=== PATIENT | female | born 1950 | race Caucasian/White ===

== ENCOUNTER 2019-06-26 06:55 | Day surgery (SDC) ==
--- NOTE | 2019-06-20 15:07 | EKG Report ---
Test Performed on : 06/20/2019 3:02:55 PM Test Reason : PAT Blood Pressure : / mmHG Vent. Rate : 073 BPM Atrial Rate : 073 BPM P-R Int : 144 ms QRS Dur : 086 ms QT Int : 410 ms P-R-T Axes : 084 088 083 degrees QTc Int : 451 ms Normal sinus rhythm. with sinus arrhythmia. Biatrial enlargement Abnormal ECG When compared with ECG of 22-NOV-2013 12:04, Criteria for Anterior infarct are no longer present Confirmed by Cornell Parish MD ([id number]) on 06/21/2019 8:10:27 AM
[2019-06-20 15:24] LABS: HEMATOCRIT 40.5 % (37.0-47.0); HEMOGLOBIN 13.3 g/dL (12.0-16.0); MCH 31.4 PG (27-31); MCHC 32.8 g/dL (33-37); MCV 95.5 FL (81-99); MPV 9.7 FL (7.4-10.4); RBC 4.24 XMIL (4.2-5.4); RDW 14.2 % (11.5-14.5); WBC 7.24 X1000 (4.8-10.8)
[2019-06-20 15:55] LABS: AGAP 12; BUN 19 mg/dL (8-22); CALCIUM 8.8 mg/dL (8.8-10.2); CHLORIDE 108 mmol/L (98-107); COSMO 289; CREATININE 0.7 mg/dL (0.5-0.9); ESTIMATED GFR > 60; GLUCOSE 91 mg/dL (70-104); SODIUM 144 mmol/L (136-145); TCO2 24 mmol/L (25-35)
--- NOTE | 2019-06-26 07:57 | Diag Imaging Result Doc PS360 ---
LYMPHOSCINTIGRAPHY W/IMG - 06/26/2019 INDICATION: LEFT BREAST CARCINOMA COMPARISON: None FINDINGS: 530 uCi of radiotracer was injected into the left breast. After the appropriate delay, there was successful visualization of at least one sentinel lymph node in the axilla. IMPRESSION: Successful lymphoscintigraphy of the breast. Electronically signed by Mark Jaquez 06/26/2019 7:55 AM
[2019-06-26] MEDS ORDERED: LR 1,000 ML ONE ×2 (08:07→08:08)
[2019-06-26] MEDS ORDERED: KEFZOL 1 GM/D5W 1 GM/50 ML IVPB ONE (08:07)
[2019-06-26] MEDS ORDERED: FENTANYL ONE (08:08)
[2019-06-26] MEDS ORDERED: DIPRIVAN 1% ONE (08:08)
[2019-06-26] MEDS ORDERED: ROBINUL ONE (08:12)
[2019-06-26] MEDS ORDERED: QUELICIN (DOSE) ONE (08:12)
[2019-06-26] MEDS ORDERED: XYLOCAINE-MPF 2% ONE (08:12)
[2019-06-26] MEDS ORDERED: METHYLENE BLUE 0.5% ONE (08:27)
[2019-06-26] MEDS ORDERED: DECADRON ONE (09:12)
[2019-06-26] MEDS ORDERED: ZOFRAN ONE (09:12)
[2019-06-26] MEDS ORDERED: EPHEDRINE ONE (09:25)
[2019-06-26] MEDS: DILAUDID ONE ×2 (10:26→10:30)
[2019-06-26] MEDS ORDERED: ZOFRAN IV PRN (11:13)
[2019-06-26] MEDS ORDERED: DILAUDID IV PRN (11:13)
[2019-06-26 15:34] LABS: URINE SOURCE CLEAN CATCH
[2019-06-26 15:38] LABS: BILIRUBIN URINE NEGATIVE (NEGATIVE); BLOOD URINE NEGATIVE (NEGATIVE); COLOR STRAW; GLUCOSE URINE NEGATIVE (NEGATIVE); KETONE URINE NEGATIVE (NEGATIVE); LEUKOCYTES URINE NEGATIVE (NEGATIVE); NITRITE URINE NEGATIVE (NEGATIVE); PH URINE 7.5; PROTEIN URINE NEGATIVE (NEGATIVE); SP GRAVITY URINE 1.009; TURBIDITY URINE CLEAR (CLEAR); UR EPITHELIAL CELLS <10 /HPF (<10); URINE BACTERIA NEGATIVE /HPF; URINE RBC <10 /HPF (<10); URINE WBC <10 /HPF (<10); UROBILINOGEN URINE NORMAL (NORMAL)
[2019-06-26] MEDS: KEFZOL 1 GM/D5W 1 GM/50 ML IVPB IV SCH (16:53)
[2019-06-26] MEDS: LR 1,000 ML IV SCH (16:56)
--- NOTE | 2019-06-26 18:40 | OPERATIVE NOTE ---
PROCEDURE DATE: 06/26/2019 OPERATION: 1. Left sentinel lymph node injection with methylene blue. 2. Left sentinel lymph node biopsy x2. 3. Left total mastectomy. SURGEON: Moises Malloy MD. TREE FELLER: Neftali Langley RN. PREOPERATIVE DIAGNOSIS: Cancer of the left breast. POSTOPERATIVE DIAGNOSIS: Cancer of the left breast. DESCRIPTION OF PROCEDURE: Satisfactory general anesthesia was achieved and LMA was used. The left breast was isolated. We then injected 5 mL of methylene blue in 1 mL aliquots. We then massaged the breast for 5 minutes. The anterior chest wall, breast, and proximal arm were then prepped and draped in a sterile fashion. We made an elliptical jennifer around the nipple-areolar complex with extension into the axilla. We then made a transverse incision in the axilla and dissected into the left axilla. We then interrogated the axilla with the gamma probe and we identified a hot spot. We then dissected deep into the axilla and actually identified a blue node. There was an adjacent node as well and we removed these 2 nodes, clipping off the feeding lymphatics. We then these 2 nodes. The blue node had a high gamma probe count. The additional contiguous node did not. Both of these were sent for frozen section. As we awaited that report, we then went back and incised the skin in the area of the jennifer where the ellipse was marked. We then used breast hooks to raise the skin superiorly and we developed a plane the breast from the subcutaneous tissue all the way to the clavicle. We then switched the breast hooks inferiorly and developed a similar plane down to the junction of the pectoralis major and the rectus muscle. We then used Gutierrez retractors medially and began taking the breast off the pectoralis major muscle using electrocautery. We came from medial to lateral. As we reached the lateral border of the pectoralis major, we then got word back from the frozen section that both nodes were negative. So, we simply amputated the breast and did not any further dissect the axilla whatsoever. Satisfactory hemostasis was present. We placed a Jalen drain medially, bringing it out inferior to the incision, and securing it to the skin with a 2-0 silk. We placed the drain under the superior skin flap. We then also placed a drain laterally that went toward the axilla where we had sampled the lymph nodes from the axilla. Again, this drain was secured to the skin with a 2-0 silk. We then closed the skin with marie. Negative pressure was applied evacuating the space. A sterile dressing was applied. She tolerated it well, was sent to the recovery room in satisfactory condition. cc: Moises Malloy MD
[2019-06-26] MEDS: NORCO-10 PO PRN (20:57)
[2019-06-26] MEDS ORDERED: LIPITOR PO SCH (21:00)
[2019-06-26] MEDS ORDERED: ALEVE PO SCH (21:00)
[2019-06-26] MEDS ORDERED: PATIENT'S OWN MED PO SCH ×2 (21:00)
[2019-06-26] MEDS ORDERED: MIRAPEX PO SCH (21:00)
[2019-06-26] MEDS ORDERED: ZEBETA PO SCH (21:00)
[2019-06-26] MEDS ORDERED: PERIDEX MT SCH (21:00)
[2019-06-26] MEDS ORDERED: MAG-OX PO SCH (21:00)
[2019-06-26] MEDS ORDERED: DESYREL PO SCH (21:00)
[2019-06-26] MEDS ORDERED: FLEXERIL PO SCH (21:00)
[2019-06-26] MEDS ORDERED: BENADRYL PO SCH (21:00)
[2019-06-27] MEDS: KEFZOL 1 GM/D5W 1 GM/50 ML IVPB IV SCH (00:05)
[2019-06-27] MEDS: LR 1,000 ML IV SCH (06:52)
[2019-06-27 07:33] VITALS: BP 152/65
[2019-06-27] MEDS: NORCO-10 PO PRN (11:14)
--- NOTE | 2019-06-27 15:07 | GENERAL SURGERY PROGRESS NOTE ---
DATE: 06/27/2019 SUBJECTIVE: Postop day 1 after left mastectomy, sentinel node biopsy. She is doing generally well. OBJECTIVE: She is afebrile with stable hemodynamics. Her chest wall is without evidence of hematoma. She has had a really not much drainage, 15 mL in each drain. PLAN: The plan today is remove her medial drain. I will leave her lateral drain in place. We will discharge her home. She will return to see me on Tuesday the . Activity and wound care was discussed. cc: Moises Malloy MD
== END 2019-06-27 11:31 | disposition home or self-care (01) ==
LOC: NM 06:55 → 4N 06:55 → OPLD 06:55
PROVIDERS: ATTEND Surgery